=== PATIENT | male | born 1965 | race Caucasian/White ===

== ENCOUNTER 2024-11-23 11:10 | Emergency (ER) | payer OTHER ==
[2024-11-23 11:19] VITALS: BP 137/94; PULSE 88; RESP 16; TEMP 98; BMI 37.3
[2024-11-23] MEDS ORDERED: KETOROLAC TROMETHAMINE 30 MG/1 ML VIAL ONE (12:16)
[2024-11-23] MEDS: KETOROLAC TROMETHAMINE 30 MG/1 ML VIAL IM ONE (12:21)
== END 2024-11-23 12:59 | disposition home or self-care (01) ==
LOC: JERFT 11:10
PROC: 3E0233Z Introduction of Anti-inflammatory into Muscle, Percutaneous Approach (ICD-10-PCS; principal; 2024-11-23)
DX: S63.502A Unspecified sprain of left wrist, initial encounter (principal); X50.9XXA Other and unspecified overexertion or strenuous movements or postures, initial encounter
CPT/HCPCS: 73110-TC-LT-FY; 73130-TC-LT-FY; 99284-25

== ENCOUNTER 2025-01-28 08:26 | Emergency (ER) | payer OTHER ==
[2025-01-28 08:37] VITALS: BP 132/70; PULSE 78; RESP 16; TEMP 98.7; BMI 36.8
[2025-01-28] MEDS ORDERED: LIDOCAINE 4% PATCH TP ONE (09:08)
[2025-01-28] MEDS ORDERED: ACETAMINOPHEN 500 MG TABLET (FP) ONE (09:08)
[2025-01-28] MEDS ORDERED: KETOROLAC TROMETHAMINE 30 MG/1 ML VIAL ONE (09:08)
[2025-01-28] MEDS: KETOROLAC TROMETHAMINE 30 MG/1 ML VIAL IM ONE (09:17)
[2025-01-28] MEDS: LIDOCAINE 4% PATCH TP ONE (09:17)
[2025-01-28] MEDS: ACETAMINOPHEN 500 MG TABLET (FP) PO ONE (09:18)
[2025-01-28 10:02] LABS: EPI CELLS 2 /uL (0-25.1); HYALINE CASTS 0 /uL (0-3.1); PH,URINE 5.5 (5.0-8.0); URINE APPEARANCE CLEAR; URINE BACTERIA 4 /uL (0-1359); URINE BILIRUBIN NEGATIVE (NEGATIVE); URINE COLOR YELLOW; URINE GLUCOSE (UA) NEGATIVE (NEGATIVE); URINE KETONE NEGATIVE (NEGATIVE); URINE LEUK ESTERASE NEGATIVE (NEGATIVE); URINE NITRITE NEGATIVE (NEGATIVE); URINE PROTEIN NEGATIVE (NEGATIVE); URINE RBC 18 /uL (0-23.9); URINE UROBILINOGEN 0.2 mg/dL (0.2-1.0); URINE WBC 7 /uL (0-25.8)
[2025-01-28] MEDS ORDERED: METHOCARBAMOL 500 MG TABLET ONE (13:43)
[2025-01-28] MEDS: METHOCARBAMOL 750 MG TAB PO ONE (13:49)
[2025-01-28] MEDS ORDERED: LIDOCAINE PATCH REMOVAL MC SCH (22:00)
== END 2025-01-28 14:45 | disposition home or self-care (01) ==
LOC: JERFT 08:26
PROC: 3E0233Z Introduction of Anti-inflammatory into Muscle, Percutaneous Approach (ICD-10-PCS; principal; 2025-01-28)
DX: M54.50 Low back pain, unspecified (principal)
CPT/HCPCS: 72131-TC; 74176-TC; 81003; 87086; 99285-25